=== PATIENT | female | born 1970 | race Two or more races ===

== ENCOUNTER 2016-09-16 00:26 | Inpatient (IN) | payer OTHER ==
[~2016-09-16] VITALS: Ht 160 cm; Wt 68.0 kg
[~2016-09-16 00:26] MED LIST: PROZAC10 MG PO
[2016-09-16 01:18] LABS: AMPHETAMINE NEGATIVE (500 ng/mL); BARBITURATES NEGATIVE (200 ng/mL); BENZODIAZEPINES NEGATIVE (150 ng/mL); COCAINE NEGATIVE (150 ng/mL); INTERNAL CONTROLS VALID? YES; METHADONE NEGATIVE (200 ng/mL); METHAMPHETAMINE NEGATIVE (500 ng/mL); OPIATES (MORPHINE) NEGATIVE (100 ng/mL); OXYCODONE NEGATIVE (100 ng/mL); PHENCYCLIDINE NEGATIVE (25 ng/mL); PROPOXYPHENE NEGATIVE (300 ng/mL); THC CANNABINOIDS NEGATIVE (50 ng/mL); TRICYCLIC ANTIDEPRESSANTS NEGATIVE (300 ng/mL)
[2016-09-16 01:22] LABS: MCH 24.8 PG (29.0-34.0); MCHC 31.3 G/DL (30.0-36.0); MCV 79.3 FL (83-99); PLATELET COUNT 332 K/uL (156-360); RBC DIS.WIDTH-CV 13.9 % (11.8-14.6); RBC DIS.WIDTH-SD 40.1 % (39-53); RED BLOOD COUNT 4.92 M/uL (3.80-5.20); WHITE BLOOD COUNT 11.5 K/uL (4.1-10.2)
[2016-09-16 01:30] LABS: CHLORIDE 108 mEq/L (99-109); POTASSIUM 3.9 mEq/L (3.7-5.4); SODIUM 141 mEq/L (136-147)
[2016-09-16 01:32] LABS: GLUCOSE 141 mg/dL (70-99)
[2016-09-16 01:33] LABS: ANION GAP 10 MEQ/L (2-14)
[2016-09-16 01:35] LABS: SERUM ETHYL ALCOHOL < 10 mg/dL
[2016-09-16 01:36] LABS: GFR ESTIMATE (CALCULATED) > 59 mL/min/
[2016-09-16 01:38] LABS: UREA NITROGEN (BUN) 6 mg/dL (9-23)
[2016-09-16 01:39] LABS: SALICYLATE < 5.0 MG/DL (15-30)
[2016-09-16 08:34] VITALS: BP 122/92
[2016-09-16 09:30] VITALS: BP 122/92
[2016-09-16 15:33] VITALS: BP 117/70
[2016-09-17 07:48] VITALS: BP 109/76
[2016-09-17 15:53] VITALS: BP 111/71
[2016-09-18 07:53] VITALS: BP 128/70
[2016-09-18] MEDS ORDERED: FLUOXETINE HCL10 MG PO (10:47)
[2016-09-18 15:27] VITALS: BP 120/81
[2016-09-19 07:39] VITALS: BP 114/68
[2016-09-19] MEDS ORDERED: FLUOXETINE HCL10 MG PO (10:15)
== END 2016-09-19 11:14 | disposition home or self-care (01) | DRG 918 ==
LOC: EME → EDBD 00:26 → EDOF 06:39 → 1WEST 06:39
PROVIDERS: Emergency Medicine
DX: T45.0X2A Poisoning by antiallergic and antiemetic drugs, intentional self-harm, initial encounter (principal); F33.2 Major depressive disorder, recurrent severe without psychotic features; F60.9 Personality disorder, unspecified; E78.5 Hyperlipidemia, unspecified; R73.09 Other abnormal glucose; F41.9 Anxiety disorder, unspecified
CPT/HCPCS: 80048; 85027; 90837; 93005; 99281; 99285; G0480; J2060; J7030